=== PATIENT | female | born 1985 | race Asian ===

== ENCOUNTER 2016-03-15 20:57 | Emergency (ER) | payer OTHER ==
[2016-03-15 21:15] VITALS: BP 111/68
--- NOTE | 2016-03-15 21:26 | UC ---
UC General HPI - HPI Summary HPI Summary: 30 year old female presents complaining of nasal congestion, frontal sinus pressure, and fever-like symptoms x 2 days. - History of Current Complaint Chief Complaint: UC Stated Complaint: FEVER,ACHES,NASAL CONGESTION Time Seen by Provider: 03/15/16 21:10 Hx Obtained From: Patient Onset/Duration: Gradual Onset - Began throughout the day Onset Severity: Mild Current Severity: Mild - Allergy/Home Medications Allergies/Adverse Reactions: Allergies Allergy/AdvReac Type Severity Reaction Status Date / Time No Known Allergies Allergy Verified 03/15/16 21:14 PMH/Surg Hx/FS Hx/Imm Hx Previously Healthy: Yes Endocrine History Of: Denies: Diabetes, Thyroid Disease, Hyperthyroidism, Hypothyroidism, Dyslipidemia Cardiovascular History Of: Denies: Cardiac Disorders, Hypertension, Pacemaker/ICD, Myocardial Infarction , Congestive Heart Failure, Atrial Fibrillation, Deep Vein Thrombosis, Bleeding Disorders Respiratory History Of: Denies: COPD, Asthma, Bronchitis, Pneumonia, Pulmonary Embolism Neurological History Of: Denies: TIA, CVA, Dementia, Seizures, Migraine Psychological History Of: Denies: Anxiety, Depression, Bipolar Disorder, Schizophrenia, Post Traumatic Stress Disorder - Family History Known Family History: Positive: Other - Mother and Father- Elevated cholesterol - Social History Occupation: Employed Full-time - Hospital scribe for [employer] Lives: With Family Alcohol Use: None Substance Use Type: None Smoking Status (MU): Never Smoked Tobacco Have You Smoked in the Last Year: No Review of Systems Constitutional: Fever, Chills Skin: Negative Eyes: Negative ENT: Nasal Discharge Respiratory: Negative Cardiovascular: Negative Gastrointestinal: Negative Genitourinary: Negative Motor: Negative Neurovascular: Negative Musculoskeletal: Negative Neurological: Negative Psychological: Negative All Other Systems Reviewed And Are Negative: Yes Physical Exam Triage Information Reviewed: Yes Appearance: Well-Appearing Vital Signs Reviewed: Yes Eyes: Positive: Conjunctiva Clear ENT: Positive: Hearing grossly normal, Pharynx normal, Nasal congestion - Bilateral nasal turbinates, TMs normal Neck: Positive: Supple, Nontender, No Lymphadenopathy Respiratory: Positive: Chest non-tender, Lungs clear, Normal breath sounds Cardiovascular: Positive: RRR, No Murmur, Pulses Normal Abdomen Description: Positive: Nontender, No Organomegaly, Soft Bowel Sounds: Positive: Present Musculoskeletal: Positive: Strength Intact Neurological: Positive: Alert Psychological Exam: Normal Skin Exam: Normal Course/Dx - Differential Dx - Multi-Symptom Provider Diagnoses: Rhinitis. Upper respiratory infection. Viral Illness Discharge - Discharge Plan Condition: Stable Disposition: HOME Prescriptions: Mometasone NASAL (NF) [Nasonex (NF)] 1 spray .SEE ORDER BID #1 nasal.spr Patient Education Materials: Cold Symptoms (ED) Forms: *Work Release Referrals: Lisa Canela MD [Primary Care Provider] - If Needed
== END 2016-03-15 21:40 | disposition home or self-care (01) ==
LOC: UCEAST 20:57
DX: J31.0 Chronic rhinitis (principal); J06.9 Acute upper respiratory infection, unspecified; B34.9 Viral infection, unspecified
CPT/HCPCS: 99212; G0463

== ENCOUNTER 2018-11-05 23:46 | Emergency (ER) | payer BC ==
[2018-11-05 23:54] VITALS: BP 123/76
--- OUTSIDE RECORDS SUMMARY | 2018-11-05 23:56 | XMS REPORT | Continuity of Care Document ---
:1985 External Reference #:[id number] Author Name Eric Barclay NP (transmitted by agent of provider Jovana Garcia) Address [address], [place] [address] Care Team Providers Name Role Phone Lisa Canela MD - Internal Care Team Information Tester/Lift Trucker [phone] Medicine Problems Description No Active Problems Social History Type Date Description Comments Sex Unknown ETOH Use Occasionally consumes alcohol Tobacco Use Start: Unknown Patient has never smoked Smoking Status Reviewed: 10/17/18 Patient has never smoked Exercise Type/Frequency Exercises rarely Allergies, Adverse Reactions, Alerts Description No Known Drug Allergies Medications Active Medications SIG Qnty Indications Ordering Provider Date Vitamin D3 Maximum 1 by mouth every Unknown Strength day 5000Unit Capsules Hair/Skin/Nails 1 by mouth every Unknown Tablets day Multi Complete daily Unknown Capsules Lexapro 1.5 tabs by Unknown 5mg Tablets mouth every day Immunizations CPT Code Status Date Vaccine Lot # [id number] Given 12/02/2017 Influenza Virus Vaccine, Quadrivalent, Split, Preservative Free Vital Signs Date Vital Result Comment 10/17/2018 10:32am Height 61.75 inches 5'1.75" Weight 84.38 lb Heart Rate 75 /min BP Systolic 92 mmHg BP Diastolic 65 mmHg Body Temperature 97.4 F O2 % BldC Oximetry 99 % BMI (Body Mass Index) 15.6 kg/m2 04/12/2018 8:45am Height 61.75 inches 5'1.75" Weight 90.25 lb Heart Rate 63 /min BP Systolic 94 mmHg BP Diastolic 64 mmHg Body Temperature 96.3 F O2 % BldC Oximetry 99 % BMI (Body Mass Index) 16.6 kg/m2 Results Description No Information Available Procedures Description No Information Available Medical Devices Description No Information Available Encounters Description No Information Available Assessments Date Code Description Provider 10/17/2018 L50.0 Allergic urticaria Eric Barclay NP Plan of Treatment Future Appointment(s):04/16/2019 9:20 am - [facility] Eric Barclay NPL50.0 Allergic urticariaReferral: [facility] Functional Status Description No Information Available Mental Status Description No Information Available Referrals Refer to Reason for Referral Status Appt Date [facility] no oral antihistamines 48 hrs Scheduled 2018 prior to appt [address] [place] [address] [phone]
== END 2018-11-06 01:30 | disposition left against medical advice (07) ==
LOC: ED 23:46
DX: R21 Rash and other nonspecific skin eruption (principal); Z53.21 Procedure and treatment not carried out due to patient leaving prior to being seen by health care provider